=== PATIENT | female | born 1990 | race American Indian/Alaskan Native ===

== ENCOUNTER 2019-06-09 02:33 | Emergency (ER) | payer SELFPAY ==
[2019-06-09] MEDS ORDERED: ATIVAN IV ONE (03:20)
[2019-06-09] MEDS ORDERED: NACL 0.9% 1000 ML 1,000 ML IV ONE (03:20)
--- NOTE | 2019-06-09 04:53 | Emergency Department Report ---
History of Present Illness - General Chief Complaint: Overdose Stated Complaint: POSS DRUG INGESTION Time Seen by Provider: 06/09/19 03:13 Source: patient Mode of arrival: Ambulatory Limitations: No Limitations - History of Present Illness Initial Comments: Patient is a 28-year-old female who is presenting with an intoxication from marijuana. Patient ate several animals and now is feeling very nervous and is having Episodes where sometimes she is crying sometimes is laughing. Patient does also feel paranoid. Patient states she feels as though her heart is racing and she has some shortness of breath. Patient denies chest pain nausea vomiting at this time. Patient is not hallucinating - Related Data Allergies Allergy/AdvReac Type Severity Reaction Status Date / Time No Known Allergies Allergy Unverified 06/09/19 02:39 ED Review of Systems ROS: Stated complaint: POSS DRUG INGESTION Other details as noted in HPI Comment: All other systems reviewed and negative ED Past Medical Hx - Past Medical History Previous Medical History?: No - Surgical History Past Surgical History?: No - Social History Smoking Status: Never Smoker Substance Use Type: Alcohol ED Physical Exam - General Limitations: No Limitations General appearance: alert, anxious, in distress - Head Head exam: Present: atraumatic, normocephalic - Eye Eye exam: Present: normal appearance - ENT ENT exam: Present: mucous membranes moist - Neck Neck exam: Present: normal inspection - Respiratory Respiratory exam: Present: normal lung sounds bilaterally. Absent: respiratory distress, wheezes, rales, rhonchi - Cardiovascular Cardiovascular Exam: Present: normal rhythm, tachycardia. Absent: systolic murmur, diastolic murmur, rubs, gallop - GI/Abdominal GI/Abdominal exam: Present: soft, normal bowel sounds. Absent: distended, tenderness, guarding, rebound - Extremities Exam Extremities exam: Present: normal inspection - Back Exam Back exam: Present: normal inspection - Neurological Exam Neurological exam: Present: alert, oriented X3 - Psychiatric Psychiatric exam: Present: normal affect, normal mood - Skin Skin exam: Present: warm, dry, intact, normal color. Absent: rash ED Course Vital Signs 06/09/19 02:42 Temperature 99.2 F Pulse Rate 150 H Respiratory 16 Rate Blood Pressure 132/76 O2 Sat by Pulse 99 Oximetry ED Medical Decision Making - Medical Decision Making Patient was given IV fluids and Ativan to help with the tachycardia. Patient is calm down. Discharge Heart Rate Is 103. Patient Be Discharged Home. Critical care attestation.: If time is entered above; I have spent that time in minutes in the direct care of this critically ill patient, excluding procedure time. ED Disposition Clinical Impression: Marijuana intoxication Qualifiers: Complication of substance-induced condition: with unspecified complication Qualified Code(s): F12.929 - Cannabis use, unspecified with intoxication, unspecified Disposition: DC-01 TO HOME OR SELFCARE Is pt being admited?: No Does the pt Need Aspirin: No Condition: Stable Instructions: Cannabis Abuse (ED) Time of Disposition: 04:52
[2019-06-09] MEDS ORDERED: ZOFRAN ONE (05:14)
[2019-06-09] MEDS ORDERED: ZOFRAN ODT PO ONE (05:16)
[2019-06-09] MEDS ORDERED: ZOFRAN IV ONE (05:52)
[2019-06-09 10:59] VITALS: BP 102/58
== END 2019-06-09 11:07 | disposition home or self-care (01) ==
LOC: ED 02:33
DX: F12.929 Cannabis use, unspecified with intoxication, unspecified (principal)
CPT/HCPCS: 93005; 93010; 96374; 96375; 99282; J2060; J2405; J7030